=== PATIENT | male | born 1995 | race Asian ===

== ENCOUNTER 2017-09-27 01:39 | Observation (INO) | payer BC ==
[~2017-09-27] VITALS: Ht 175.3 cm; Wt 67.0 kg
[2017-09-27] MEDS ORDERED: PROPRANOLOL HCL 1 MG/ML 1 ML VIAL IV STA (01:56)
[2017-09-27] MEDS ORDERED: SODIUM CHLORIDE 0.9% 1000ML 1,000 ML IV STA (01:58)
[2017-09-27 02:12] LABS: BASO % 0.1 %; BASO ABS # 0.01 K/uL (0-0.2); COMPLETE YES; EOS % 5.2 %; HEMATOCRIT 41.8 % (42-52); IG% 0.1 %; LYMPH % 42.8 %; MEAN CELL VOLUME 89.5 fL (80-100); MEAN CORPUSCULAR HGB CONC 34.7 g/dl (32-36); MEAN PLATELET VOLUME 10.1 fL (7.4-10.4); NEUT % 37.8 %; PLATELET COUNT 202 K/uL (130-400); RED BLOOD COUNT 4.67 M/uL (4.7-6.1); WHITE BLOOD COUNT 7.48 K/uL (4.8-10.8)
--- NOTE | 2017-09-27 02:23 | EMERGENCY ROOM VISIT NOTE ---
History Report prepared by Deepak: Isaiah Vazquez Under the Supervision of: Dr. Zuhair Ayala M.D. First contact with patient: 01:46 Chief Complaint: TACHYCARDIA Stated Complaint: FAST HEART RATE,CAN'T CATCH BREATH,ANXIETY History of Present Illness The patient is a 21 year old male who presents to the Emergency Room with complaints of constant tachycardia starting earlier tonight. The patient states that he has not been able to sleep tonight due to this. He states that he has had a fast heart rate in the past, though he has never been unable to sleep because of it, and he has never needed medications. He states that he has a history of depression, and anxiety and recently was evaluated for his thyroid and found to have of hyperthyroidism from labs drawn on 09/20. He is not currently on any medications for his thyroid. The patient denies any drug use or alcohol use. Source of History: patient Onset: earlier tonight Position: other (global) Quality: other (tachycardia) Timing: constant Note: Associated symptoms: inability to sleep Review of Systems See HPI for pertinent positives and negatives. A total of ten systems were reviewed and were otherwise negative. Past Medical & Surgical Medical Problems: (1) Anxiety (2) Depression (3) Hyperthyroidism (4) Palpitations Social History Smoking Status: Never Smoker Alcohol Use: none Marital Status: single Occupation Status: student Current/Historical Medications No Active Prescriptions or Reported Meds Allergies Coded Allergies: [place] (Verified Allergy, Intermediate, RASH, 09/27/17) Penicillins (Verified Allergy, Unknown, RASH, 09/27/17) Physical Exam Vital Signs Date Time Temp Pulse Resp B/P (MAP) Pulse Ox O2 Delivery O2 Flow Rate FiO2 09/27/17 03:40 36.6 110 26 118/67 95 Room Air 09/27/17 02:42 110 143/69 95 Room Air 09/27/17 02:32 108 150/75 95 09/27/17 02:26 95 Room Air 09/27/17 02:20 108 147/78 95 Room Air 09/27/17 02:12 112 135/78 96 Room Air 09/27/17 02:01 97 Room Air 09/27/17 01:56 119 09/27/17 01:41 36.6 26 161/90 96 Room Air Physical Exam GENERAL: Awake, alert, anxious-appearing, in mild distress. HENT: Dry mucous membranes. Oropharynx otherwise unremarkable. Normocephalic, atraumatic. EYES: Normal conjunctiva. Sclera non-icteric. NECK: Supple. No nuchal rigidity. FROM. No JVD. RESPIRATORY: Clear to auscultation. CARDIAC: Sinus tachycardia. Extremities warm and well perfused. Pulses equal. ABDOMEN: Soft, non-distended. No tenderness to palpation. No rebound or guarding. No masses. RECTAL: Deferred. MUSCULOSKELETAL: Chest examination reveals no tenderness. The back is symmetrical on inspection without obvious abnormality. There is no CVA tenderness to palpation. No joint edema. LOWER EXTREMITIES: Calves are equal size bilaterally and non-tender. No edema. No discoloration. NEURO: Normal sensorium. No sensory or motor deficits noted. SKIN: Scattered patches of blanchable erythema/flushed with mild warmth. Dry skin. No jaundice noted. Medical Decision & Procedures ER Provider Diagnostic Interpretation: X-ray: Per my interpretation: Chest One View: Normal mediastinum. No gross infiltrates. Laboratory Results 09/27/17 02:00 Red Blood Count 4.67, Mean Corpuscular Volume 89.5, Mean Corpuscular Hemoglobin 31.0, Mean Corpuscular Hemoglobin Concent 34.7, Mean Platelet Volume 10.1, Neutrophils (%) (Auto) 37.8, Lymphocytes (%) (Auto) 42.8, Monocytes (%) (Auto) 14.0, Eosinophils (%) (Auto) 5.2, Basophils (%) (Auto) 0.1, Neutrophils # (Auto ) 2.82, Lymphocytes # (Auto) 3.20, Monocytes # (Auto) 1.05, Eosinophils # (Auto ) 0.39, Basophils # (Auto) 0.01 09/27/17 02:00 Test 09/27/17 02:00 White Blood Count 7.48 K/uL (4.8-10.8) Red Blood Count 4.67 M/uL (4.7-6.1) Hemoglobin 14.5 g/dL (14.0-18.0) Hematocrit 41.8 % (42-52) Mean Corpuscular Volume 89.5 fL (80-100) Mean Corpuscular Hemoglobin 31.0 pg (25-34) Mean Corpuscular Hemoglobin Concent 34.7 g/dl (32-36) Platelet Count 202 K/uL (130-400) Mean Platelet Volume 10.1 fL (7.4-10.4) Neutrophils (%) (Auto) 37.8 % Lymphocytes (%) (Auto) 42.8 % Monocytes (%) (Auto) 14.0 % Eosinophils (%) (Auto) 5.2 % Basophils (%) (Auto) 0.1 % Neutrophils # (Auto) 2.82 K/uL (1.4-6.5) Lymphocytes # (Auto) 3.20 K/uL (1.2-3.4) Monocytes # (Auto) 1.05 K/uL (0.11-0.59) Eosinophils # (Auto) 0.39 K/uL (0-0.5) Basophils # (Auto) 0.01 K/uL (0-0.2) RDW Standard Deviation 43.1 fL (36.4-46.3) RDW Coefficient of Variation 13.2 % (11.5-14.5) Immature Granulocyte % (Auto) 0.1 % Immature Granulocyte # (Auto) 0.01 K/uL (0.00-0.02) Anion Gap 7.0 mmol/L (3-11) Est Creatinine Clear Calc Drug Dose 152.7 ml/min Estimated GFR () > 150.0 Estimated GFR (Non- 132.8 BUN/Creatinine Ratio 27.2 (10-20) Calcium Level 9.3 mg/dl (8.5-10.1) Magnesium Level 2.0 mg/dl (1.8-2.4) Total Bilirubin 0.9 mg/dl (0.2-1) Direct Bilirubin mg/dl (0-0.2) Aspartate Amino Transf (AST/SGOT) 40 U/L (15-37) Alanine Aminotransferase (ALT/SGPT) 73 U/L (12-78) Alkaline Phosphatase 217 U/L (45-117) Troponin I < 0.015 ng/ml (0-0.045) Total Protein 7.3 gm/dl (6.4-8.2) Albumin 3.8 gm/dl (3.4-5.0) Lipase 110 U/L (73-393) Thyroid Stimulating Hormone (TSH) < 0.005 uIu/ml (0.300-4.500) Free Thyroxine 5.90 ng/dl (0.80-1.60) Free Triiodothyronine > 20.00 pg/ml (2.30-4.20) Total Triiodothyronine 5.61 ng/ml (0.60-1.81) Chemistry Specimen Hemolysis Laboratory results reviewed by me Medications Administered Medications (Trade) Dose Ordered Sig/Abi Route Start Time Stop Time Status Last Admin Dose Admin Propranolol HCl (Inderal Inj) 0.5 mg NOW STAT IV 09/27/17 01:56 09/27/17 01:58 DC 09/27/17 01:56 0.5 MG Sodium Chloride 1,000 ml @ 999 mls/hr Q1H1M STAT IV 09/27/17 01:58 09/27/17 02:58 DC 09/27/17 01:58 999 MLS/HR ECG Indication: tachycardia Rate (beats per minute): 118 Rhythm: sinus tachycardia Findings: no acute ischemic change, other (Normal axis) ED Course 0146: The patient was evaluated in room A9. A complete history and physical exam was performed. 0225: I reevaluated the patient, and he was feeling better with a heart rate of 109bpm 0305: I discussed the patient with Dr. Salinas - he will evaluate the patient for further treatment. Medical Decision I reviewed the patient's past medical history, medications, and the nursing notes as described above. Differential diagnoses include: thyroid toxicosis, SVT, dehydration, electrolyte abnormality, pneumonia, and bronchitis. The patient is a 21-year-old gentleman with a past medical history of anxiety and depression and a recent diagnosis of hyperthyroidism who presents to the emergency department with heart racing/palpitations, sweats unable to sleep per history of present illness. On arrival the patient is in mild distress, anxious , afebrile with heart rate in the 120s but vital signs otherwise stable. On exam he has patches of blanchable erythema on his neck and arms. Oropharynx otherwise clear without any edema or injection. Patient had printout of his outpatient labs at the bedside which demonstrated elevated free T3 and T4 values consistent with hyperthyroidism. Given on the likely etiology of possible thyrotoxicosis he was given IV propranolol with good effect heart rate to the 100s and improvement of the patient's symptoms. Labs here today demonstrated his hyperthyroidism with free T3 > 20 was elevated free T4. He was given PTU to inhibit thyroid production and limit conversion of free T4 to T3. Case was discussed with [place]. Sal[place], [facility] [place], who will admit the patient for further management. Consults Time Called: [phone] Consulting Physician: Dr. Salinas Returned Call: [phone] I discussed the patient with Dr. Salinas - he will evaluate the patient for further treatment. Impression Primary Impression: Thyrotoxicosis Critical Care I have personally spent greater than 35 minutes of critical care time in the direct management of this patient. This includes bedside care, interpretation of diagnostic studies, and testing, discussion with consultants, patient, and family members, and other required patient management activities. This 35 minutes is in excess of all separately billable procedures. Scribe Attestation The scribe's documentation has been prepared under my direction and personally reviewed by me in its entirety. I confirm that the note above accurately reflects all work, treatment, procedures, and medical decision making performed by me. Departure Information Dispostion Being Evaluated By Hospitalist Prescriptions No Active Prescriptions or Reported Meds Referrals No Doctor, Assigned (PCP) Patient Instructions My [facility]
[2017-09-27 02:43] LABS: ALKALINE PHOSPHATASE 217 U/L (45-117); ALT/SGPT 73 U/L (12-78); BLOOD UREA NITROGEN 20 mg/dl (7-18); BUN/CREATININE RATIO 27.2 (10-20); CALCIUM 9.3 mg/dl (8.5-10.1); CARBON DIOXIDE 28 mmol/L (21-32); CHLORIDE 103 mmol/L (98-107); CREATININE 0.74 mg/dl (0.60-1.40); GLUCOSE 99 mg/dl (70-99); THYROID STIMULATING HORMONE < 0.005 uIu/ml (0.300-4.500)
[2017-09-27 02:49] LABS: SODIUM 138 mmol/L (136-145)
[2017-09-27 02:55] LABS: AST/SGOT 40 U/L (15-37)
[2017-09-27] MEDS: PROPYLTHIOURACIL 50 MG TAB PO STA ×2 (03:43→04:25)
[2017-09-27] MEDS ORDERED: MAGNESIUM HYDROXIDE SUSP 30 ML UDC PO PRN (03:45)
[2017-09-27] MEDS ORDERED: ACETAMINOPHEN 325 MG TAB PO PRN (03:45)
[2017-09-27] MEDS ORDERED: ONDANSETRON INJ 2 MG/ML 2 ML VIAL IV PRN (03:45)
[2017-09-27] MEDS ORDERED: ALUMINUM/MAGNESIUM/SIMETH (MAALOX MAX) 30 ML UDC PO PRN (03:45)
[2017-09-27] MEDS ORDERED: POLYETHYLENE (MIRALAX) 17 GM PACK PO PRN (03:45)
[2017-09-27] MEDS ORDERED: METHIMAZOLE 5 MG TAB PO STA (04:20)
[2017-09-27] MEDS ORDERED: IV FLUIDS COMPLETED PRN (04:45)
--- NOTE | 2017-09-27 04:46 | HISTORY & PHYSICAL EXAMINATION ---
DATE OF ADMISSION: 09/27/2017 HISTORY OF PRESENT ILLNESS: Fletcher is a pleasant 21-year-old male who presents to the Emergency Room tonight with inability to sleep. He states that this evening, he tried to sleep and had the sensation of his heart beating very quickly, and "felt like his heart was going to jump out of his chest." He also states that he was feeling sweaty and diaphoretic. He denies any chest pain or shortness of breath. He also reports feeling quite restless and feeling the need to move quite a bit. Given that his symptoms persisted for approximately half an hour, the patient and his mother decided to come to the Emergency Room for further evaluation. Otherwise, the patient states that he has had night sweats consistently for the past 1 year. He also notes that he has lost 7 pounds unintentionally over the past 2 months. He denies any changes to his skin or hair. His appetite has generally been poor over the past month. However, he denies any nausea, vomiting, abdominal pain, diarrhea, or constipation. He has not had any changes in his bowel movements otherwise. The patient has not had any chills or sweats. The patient does report having a general baseline of anxiety for which she was recently prescribed Wellbutrin, but has not started taking this yet. In the Emergency Room, thyroid function testing was done which revealed elevated T3 and T4 levels. The patient was treated with both propylthiouracil and a single IV dose of propranolol. The hospice service was consulted to admit the patient due to concerns for possible evolving thyrotoxic storm. REVIEW OF SYSTEMS: A 10-point review of systems was otherwise negative unless stated above in the history of presenting illness. PAST MEDICAL AND SURGICAL HISTORY: 1. Depression. 2. Anxiety. MEDICATIONS: Wellbutrin has been prescribed recently but, the patient has not started taking Wellbutrin yet. ALLERGIES: PENICILLIN FOR WHICH HE GETS RASH. CUCUMBER. SOCIAL HISTORY: The patient is a nonsmoker. He denies drinking alcohol. He lives with his mother at this time. 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 The patient is originally from the [place] area. FAMILY HISTORY: There is no noted family history endorsed by the patient or his mother. PHYSICAL EXAMINATION: VITAL SIGNS: As noted in the electronic medical records. At the time of my evaluation, the patient's pulse was 110, respiration rate was 16, blood pressure was 143/69, the patient's pO2 was 95% on room air. GENERAL: Inspection; the patient appears mildly agitated, slightly tremulous, but not in any obvious pain or distress. NEUROLOGIC: Alert and oriented x3, no obvious focal neurological deficits, cranial nerves II-XII are grossly intact. HEAD: Nontraumatic, normocephalic. EAR, NOSE AND THROAT: Mucous membranes are moist, the pharynx is clear, the tympanic membranes are clear bilaterally, there is no sinus tenderness. NECK: Supple, no cervical adenopathy, no JVD, no thyromegaly. LUNGS/CHEST: Clear to auscultation bilaterally, no wheezing or crackles, no evidence of respiratory distress, no chest tenderness to palpation. CARDIOVASCULAR: S1 and S2 with no added sounds, murmurs or rubs. ABDOMEN/GASTROINTESTINAL: Soft, nontender, nondistended, normoactive bowel sounds in all 4 quadrants, no organomegaly. BACK: No spinal or paraspinal tenderness. EXTREMITIES: No calf pain, no pitting edema. INTEGUMENTARY: There are no rashes or no abnormal skin lesions. LABORATORY DATA AND INVESTIGATIONS: Hematology: White blood cell count 7.48, hemoglobin 14.5, hematocrit 41.8, MCV 89.5, platelets 202. Electrolytes: Sodium 138, potassium 4.0, chloride 103, carbon dioxide 28. Renal function: BUN 20, creatinine 0.74, GFR 132. Thyroid function test: TSH < 0.005, free T4 5.9, free T3 > 20. Total T3 5.61. EKG normal sinus tachycardia. Chest x-ray: There are no gross abnormalities that are noted. The final report is pending. ASSESSMENT: This is a 21-year-old male presenting with new diagnosis of hyperthyroidism. PLAN: For the patient is as follows: 1. Hyperthyroidism: The patient will be treated with methimazole. The patient will also be started on oral propranolol. 2. Thyroid US and thyroid uptake scan ordered to characterize hyperthyroidism 3. Regarding depression/anxiety, we can wait for discharge to start Wellbutrin. Anxiety may also be secondary to hyperthyroidism so this may improve in part with methimazole and propranolol treatment 4. Deep venous thrombosis prophylaxis: The patient will be treated with SCDs and TEDs. At this time, there is no need for pharmacological anticoagulation. 5. Code status: The patient is a level 1 full code. 6. Disposition: The patient does not require PT or OT at this time. The patient will be admitted under observation status to telemetry. Attending Addendum: I have physically seen and examined this patient, have directed the resident's medical activities, and agree with the H&P as noted above with the following exceptions as noted. The patient is awake, alert and oriented 3, well-developed and well-nourished , normocephalic and atraumatic, lying in bed and in no acute distress. HEENT--PERRL, EOMI, mucous membranes and oropharynx dry. Neck--supple, no JVD or bruits, thyroid normal, trachea midline, no adenopathy. Heart--normal S1 and S2, no extra beats, no murmurs, rubs or gallops. Lungs--clear bilaterally with good air movement, no respiratory distress, no accessory muscle use. Abdomen--normal bowel sounds and soft, nontender and nondistended, no hernias or masses, no organomegaly. Extremities--no cyanosis, clubbing or edema. There are good distal pulses b/l. Dermatologic--normal skin turgor, normal color, warm and dry, no abnormal lymph nodes, no rash. Neurologic--cranial nerves II through XII grossly intact. Rheumatologic--normal range of motion. Psychiatric--normal affect. Assessment and Plan: Hyperthryoidism-- Methimazole 10 mg by mouth twice a day. Propranolol 40 mg by mouth twice a day. Thyroid ultrasound. Thyroid uptake scan. Monitor on telemetry for possible arrhythmia. MTDD
--- NOTE | 2017-09-27 04:55 | History and Physical ---
History & Physical Date of Service Sep 27, 2017. History & Physical See dictated H&P for full report HISTORY: 21 YO male with anxiety/depression who presents with inability to sleep this evening. Reports feeling diaphoretic. Also reports weight loss over the past 2 months, approximately 7 lbs. Poor appetite, difficulty concentrating at school. No GI symptoms. No integumentary complaints. Noted to by hyperthyroid in ED. New diagnosis to the patient. Given PTU and Propranolol by ED physician. Decision made to admit patient for further management. EXAMINATION - VS as noted in the EMR: patient persistently tachycardic 100-110 since arrival - Mildly tremulous - No stigmata of Graves, no thyromegaly - Remaining exam is otherwise normal LABS/INVESTIGATIONS - Item Value Date Time Total Triiodothyronine 5.61 ng/ml H 09/27/17 0200 Free Triiodothyronine > 20.00 pg/ml H 09/27/17 0200 Free Thyroxine 5.90 ng/dl H 09/27/17 0200 Thyroid Stimulating Hormone (TSH) < 0.005 uIu/ml L 09/27/17 0200 CXR: no acute findings, final report pending ASSESSMENT and PLAN 21 year old with new diagnosis hyperthyroidism: - Hyperthyroidism: Continue with PO Methimazole and Propranolol. Characterize further with thyroid ultrasound and thyroid uptake scan - Anxiety/Depression: was recently given a prescription for Wellbutrin, but never got it filled. This can be deferred to outpatient setting - DVT Prophylaxis: SCD, TEDs - Level I Full Code - Observation telemetry
[2017-09-27 06:00] VITALS: BP 132/76; PULSE 103; TEMP 36.7; O2SAT 96; Ht 175.3 cm; Wt 67.0 kg
[2017-09-27 06:21] LABS: HEMATOCRIT 38.7 % (42-52); MEAN CELL VOLUME 89.4 fL (80-100); MEAN CORPUSCULAR HEMOGLOBIN 30.5 pg (25-34); MEAN CORPUSCULAR HGB CONC 34.1 g/dl (32-36); MEAN PLATELET VOLUME 9.9 fL (7.4-10.4); PLATELET COUNT 167 K/uL (130-400); RED BLOOD COUNT 4.33 M/uL (4.7-6.1); WHITE BLOOD COUNT 6.92 K/uL (4.8-10.8)
[2017-09-27] MEDS ORDERED: INFLUENZA ADMINISTRATION CHARGE ONE (06:45)
[2017-09-27] MEDS ORDERED: INFLUENZA VIRUS QUAD VACCINE 0.5 ML SYR IM. ONE (06:45)
--- NOTE | 2017-09-27 06:52 | DIAGNOSTIC IMAGING REPORT ---
CHEST ONE VIEW PORTABLE HISTORY: 21 years-old Male CHEST PAIN acute atypical chest pain COMPARISON: None available TECHNIQUE: Portable upright AP view of the chest FINDINGS: The cardiomediastinal and hilar silhouettes are within normal limits. There is no pneumothorax, pleural effusion, focal airspace consolidation or overt pulmonary edema. Bones of the chest appear grossly intact. IMPRESSION: No acute cardiopulmonary process. The above report was generated using voice recognition software. It may contain grammatical, syntax or spelling errors. Electronically signed by: Juan Henson M.D. 09/27/2017 6:51 AM Dictated Date/Time: 09/27/2017 6:50 AM
[2017-09-27 06:59] LABS: BLOOD UREA NITROGEN 17 mg/dl (7-18); BUN/CREATININE RATIO 31.5 (10-20); CALCIUM 8.9 mg/dl (8.5-10.1); CARBON DIOXIDE 26 mmol/L (21-32); CHLORIDE 105 mmol/L (98-107); CREATININE 0.55 mg/dl (0.60-1.40); GLUCOSE 111 mg/dl (70-99); POTASSIUM 3.8 mmol/L (3.5-5.1); SODIUM 137 mmol/L (136-145)
[2017-09-27 07:19] VITALS: BP 124/69; PULSE 104; TEMP 36.5; O2SAT 97
--- NOTE | 2017-09-27 08:17 | DIAGNOSTIC IMAGING REPORT ---
THYROID ULTRASOUND HISTORY: hyperthyroid; graves vs toxic nodule COMPARISON: None. FINDINGS: Right lobe: 7.0 x 2.3 x 2.8 cm. No nodules. Diffusely heterogeneous and hypervascular. Left lobe: 6.8 x 2.6 x 2.4 cm. No nodules. Diffusely heterogeneous and hypervascular. Isthmus: 8 mm in thickness. No nodules. Diffusely heterogeneous and hypervascular. IMPRESSION: No thyroid nodules. The gland is enlarged, heterogeneous, and hypervascular. This would be consistent with the patient's history of Graves' disease. Electronically signed by: Hung Segal M.D. 09/27/2017 8:16 AM Dictated Date/Time: 09/27/2017 8:11 AM
[2017-09-27] MEDS ORDERED: PROPRANOLOL HCL 20 MG TAB PO SCH (09:00)
[2017-09-27] MEDS ORDERED: METHIMAZOLE 5 MG TAB PO SCH ×2 (09:00)
--- NOTE | 2017-09-27 11:09 | Discharge Instructions ---
Discharge Instructions Date of Service Sep 27, 2017. Admission Reason for Admission: Hyperthyroidism, Palpitations Discharge Discharge Diagnosis / Problem: Hyperthyroidism Discharge Goals Goal(s): Decrease discomfort, Improve function, Improve disease control Activity Recommendations Activity Limitations: resume your previous activity . Instructions / Follow-Up Instructions / Follow-Up You came to [facility] due to inability to fall asleep at night, feeling restless, with sweating, and feeling as though your heart was beating really fast. We checked your thyroid levels, and they were found to be elevated. You had an ultrasound of your thyroid gland which did not show any nodules, but rather enlargement of your entire thyroid gland. This is likely due to a condition called Graves Disease. We would have liked for you to have had a nuclear study to confirm this, but they require you do not take your thyroid medication for 5 days before this study, and you were treated with medication in the emergency department. Given the fact that you are symptomatic, and your blood test and ultrasound point to Graves Disease, we will treat you with two medications: methimazole to decrease your thyroid hormone and propranolol to decrease the symptoms from the high thyroid hormones. Your PCP will recheck your thyroid tests in 4-6 weeks and likely alter the dose to a maintenance dose then. You have recently been prescribed bupropion, but we advise you take your thyroid medication and resolve this issue before starting the medication for anxiety, as thyroid problems can worsen feelings of anxiety and may be the reason you have been feeling more anxious lately. If you do not have a primary care physician, you can follow up with Dr. Up in clinic ([facility] - [phone]) and he will optimize your medication for your hyperthyroidism and arrange your nuclear study. Current Hospital Diet Patient's current hospital diet: Regular Diet Discharge Diet Recommended Diet: Regular Diet Pending Studies Studies pending at discharge: no Medical Emergencies . Who to Call and When: Medical Emergencies: If at any time you feel your situation is an emergency, please call 911 immediately. . Non-Emergent Contact Non-Emergency issues call your: Primary Care Provider . . "Provider Documentation" section prepared by Jonnathan Morton. . VTE Core Measure Inpt VTE Proph given/why not?: Treatment not indicated
--- NOTE | 2017-09-27 11:13 | Discharge Summary ---
Discharge Summary Date of Service Sep 27, 2017. (Jonnathan Morton M.D.) Discharge Summary Admission Date: Sep 27, 2017 at 03:53 Discharge Date: Sep 27, 2017 Discharge Disposition: Home Principal Diagnosis: Hyperthyroidism Problems/Secondary Diagnoses: Depression (Jonnathan Morton M.D.) Discharge Disposition: Home (Jozef Sanchez D.O.) Discharge Exam Mr. Torres states he feels better today, as he was able to sleep overnight. He states he still feels restless, but that the palpitations have improved slightly. He denies chest pain, shortness of breath, abdominal pain or change in bowel habit. Review of Systems: Constitutional: No fever, No chills Respiratory: No cough, No sputum Cardiovascular: + palpitations, No chest pain Abdomen: No pain, No nausea, No vomiting Physical Exam: General Appearance: WD/WN, no apparent distress Respiratory/Chest: chest non-tender, lungs clear, normal breath sounds, no respiratory distress, no accessory muscle use Cardiovascular: regular rate, rhythm, no edema, no gallop, no JVD, no murmur , normal peripheral pulses, + tachycardia Abdomen / GI: normal bowel sounds, non tender, soft, no organomegaly, no pulsatile mass (Jonnathan Morton M.D.) Hospital Course Mr. Torres presented to [facility] due to inability to sleep, diaphoresis, palpitations, feelings of restlessness on a background of 7 pound weight loss over the past 2 months. He was subsequently found to have hyperthyroidism. His thyroid ultrasound showed an enlarged, heterogenous and hypervascular thyroid without the presence of nodules. He was counselled on his likely diagnosis being Graves Disease, but we were unable to obtain a nuclear study given that he had PTU in the ED, and they require 5 days without PTU to carry out a nuclear scan. He was told to follow up with his PCP to arrange a nuclear study and optimize management for his hyperthyroidism. We discharged him home on 10mg q8h of methimazole and 20mg BID or propranolol. His thyroid function tests can be rechecked and he can then be switched to a maintenance dose of methimazole. He was also counselled on waiting to start his bupropion until after his hyperthyroidism has resolved as this may have led to/worsened his anxiety. Total Time Spent: Less than 30 minutes This includes examination of the patient, discharge planning, medication reconciliation, and communication with other providers. (Jonnathan Morton M.D.) Resident Physician Supervision Note: I interviewed and examined the patient. Discussed with Dr. Morton and agree with findings and plan as documented in the note. Any exceptions or clarifications are listed here: None Documented By: Jozef Sanchez feeling better feels safe/stable for home vitals noted nad breathing unlabored no pallor or icterus hyperthyroidism - c/w graves - stable for home, methimazole and propranolol as above, d/w pt and mother likely to need dosing titrated ongoing based on response. 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 (Jonnathan Morton M.D.) Additional Copies To James Up MD
--- NOTE | 2017-09-27 11:43 | Medical Student: [facility] ---
Med Student Progress Note Date of Service Sep 27, 2017. Subjective Pt evaluation today including: conversation w/ patient, physical exam PO Intake: Good Ed Brian is a 21-year-old male with a history of anxiety and depression who presented to the ED early this morning with palpitations and inability to sleep. He said that he was also sweaty and short of breath and that this has never happened to this extent before. 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 He also reports losing 7 pounds over the last 2 months "out of nowhere." He saw his family doctor yesterday for "not feeling well," "being tired all the time," and his mood being "pretty bad. " He said they found his thyroid hormone levels to be high. In the ED, his thyroid hormone levels were very elevated. Since admission, he has also had a thyroid ultrasound. Currently, he feels like he has "a lot of energy." He says that his palpitations are improved but he can still "feel his heart going fast. " He and his mother are anxious to get the results of the tests being done today. Review of Systems Constitutional: No sweats Eyes: No problem reported Respiratory: No shortness of breath Cardiac: + palpitations, No chest pain Abdomen: No pain, No nausea, No vomiting Psychiatric: + depression symptoms, + anxiety Objective Vital Signs Date Time Temp Pulse Resp B/P (MAP) Pulse Ox O2 Delivery O2 Flow Rate FiO2 09/27/17 08:00 Room Air 09/27/17 07:19 36.5 104 16 124/69 (87) 97 Room Air 09/27/17 06:00 36.7 103 16 132/76 96 Room Air 09/27/17 05:08 112 20 140/71 96 Room Air 09/27/17 03:40 36.6 110 26 118/67 95 Room Air 09/27/17 02:42 110 143/69 95 Room Air 09/27/17 02:32 108 150/75 95 09/27/17 02:26 95 Room Air 09/27/17 02:20 108 147/78 95 Room Air 09/27/17 02:12 112 135/78 96 Room Air 09/27/17 02:01 97 Room Air 09/27/17 01:56 119 11/28/17 01:41 36.6 26 161/90 96 Room Air Physical Exam General Appearance: WD/WN, + mild distress (appears anxious, fidgeting in his bed) Eyes: bilateral eyes normal inspection (no proptosis), bilateral eyes PERRL, bilateral eyes EOMI Neck: no adenopathy, + thyroid abnormalities (mild fullness in his neck, no nodules palpated) Respiratory/Chest: lungs clear, normal breath sounds, no respiratory distress Cardiovascular: regular rate, rhythm, no edema, no gallop, no murmur Abdomen: normal bowel sounds, non tender, soft Extremities: no pedal edema (no myxedema) Skin: normal color, warm/dry Laboratory Results Last 24 Hours Test 09/27/17 02:00 09/27/17 06:09 White Blood Count 7.48 K/uL 6.92 K/uL Red Blood Count 4.67 M/uL 4.33 M/uL Hemoglobin 14.5 g/dL 13.2 g/dL Hematocrit 41.8 % 38.7 % Mean Corpuscular Volume 89.5 fL 89.4 fL Mean Corpuscular Hemoglobin 31.0 pg 30.5 pg Mean Corpuscular Hemoglobin Concent 34.7 g/dl 34.1 g/dl Platelet Count 202 K/uL 167 K/uL Mean Platelet Volume 10.1 fL 9.9 fL Neutrophils (%) (Auto) 37.8 % Lymphocytes (%) (Auto) 42.8 % Monocytes (%) (Auto) 14.0 % Eosinophils (%) (Auto) 5.2 % Basophils (%) (Auto) 0.1 % Neutrophils # (Auto) 2.82 K/uL Lymphocytes # (Auto) 3.20 K/uL Monocytes # (Auto) 1.05 K/uL Eosinophils # (Auto) 0.39 K/uL Basophils # (Auto) 0.01 K/uL RDW Standard Deviation 43.1 fL 42.9 fL RDW Coefficient of Variation 13.2 % 13.1 % Immature Granulocyte % (Auto) 0.1 % Immature Granulocyte # (Auto) 0.01 K/uL Sodium Level 138 mmol/L 137 mmol/L Potassium Level 4.0 mmol/L 3.8 mmol/L Chloride Level 103 mmol/L 105 mmol/L Carbon Dioxide Level 28 mmol/L 26 mmol/L Anion Gap 7.0 mmol/L 6.0 mmol/L Blood Urea Nitrogen 20 mg/dl 17 mg/dl Creatinine 0.74 mg/dl 0.55 mg/dl Est Creatinine Clear Calc Drug Dose 152.7 ml/min 203.0 ml/min Estimated GFR () > 150.0 > 150.0 Estimated GFR (Non- 132.8 > 150.0 BUN/Creatinine Ratio 27.2 31.5 Random Glucose 99 mg/dl 111 mg/dl Calcium Level 9.3 mg/dl 8.9 mg/dl Magnesium Level 2.0 mg/dl Total Bilirubin 0.9 mg/dl Direct Bilirubin mg/dl Aspartate Amino Transf (AST/SGOT) 40 U/L Alanine Aminotransferase (ALT/SGPT) 73 U/L Alkaline Phosphatase 217 U/L Troponin I < 0.015 ng/ml Total Protein 7.3 gm/dl Albumin 3.8 gm/dl Lipase 110 U/L Thyroid Stimulating Hormone (TSH) < 0.005 uIu/ml Free Thyroxine 5.90 ng/dl Free Triiodothyronine > 20.00 pg/ml Total Triiodothyronine 5.61 ng/ml Chemistry Specimen Hemolysis Assessment and Plan Assessment and Plan: Nahum Torres is a 21-year-old male with a history of anxiety and depression who presented to the ED with palpitations, SOB, and labs suggestive of primary hyperthyroidism. HYPERTHYROIDISM - TSH 0.005, Free T4 5.90, Free T3 20, Total T3 5.61. These findings are consistent with a defect in the thyroid gland itself. Possible causes include thyroiditis, Graves disease, thyroid adenoma, thyroid neoplasia. Pt denies thyroid being enlarged, warm, or tender making thyroiditis less likely. - Pt underwent thyroid ultrasound which showed "diffusely heterogenous and hypervascularity" consistent with Graves disease. - Pt will undergo thyroid scan to further evaluate for focal lesions. - Pt is receiving 40 mg of propranolol BID for heart rate control. - Pt has received one dose of PTU and one dose of methimazole in the ED, but will continue on methimazole 10 mg BID once thyroid testing is complete. ANXIETY AND DEPRESSION - Pt has prescription for Wellbutrin but has not taken it yet. - We will stabilize the hyperthyroidism as this may resolve these symptoms. - Further management can be done as an outpatient. DVT PROPHYLAXIS - MAGALI stockings. - Encourage ambulation as tolerated.
[2017-09-27 11:45] VITALS: BP 141/73; PULSE 96; TEMP 37; O2SAT 96
[2017-09-27] MEDS ORDERED: METH10TA6 PO ×2 (14:00→14:55)
[2017-09-27] MEDS ORDERED: PROP20TA67 PO ×2 (14:00→14:55)
[2017-09-27 14:56] VITALS: BP 141/73; PULSE 96; TEMP 37; O2SAT 96
== END 2017-09-27 15:18 | disposition home or self-care (01) ==
LOC: C.EDB 01:41 → C.MED 03:53 → ENRESERV 04:50
PROVIDERS: ADMIT Student in an Organized Health Care Education/Training Program; ATTEND Family Medicine
DX: E05.90 Thyrotoxicosis, unspecified without thyrotoxic crisis or storm (principal); R00.2 Palpitations; F32.9 Major depressive disorder, single episode, unspecified

== ENCOUNTER → 2017-12-01 | Outpatient (CLI) | payer BC ==
[~2017-12-01] MED LIST: METH10TA6 PO; PROP20TA67 PO
== END | disposition home or self-care (01) ==
LOC: C.LAB1850 16:38
PROVIDERS: ATTEND Physician Assistant
DX: E05.00 Thyrotoxicosis with diffuse goiter without thyrotoxic crisis or storm (principal)